=== PATIENT | female | born 1970 | race Caucasian/White ===

== ENCOUNTER → 2024-09-04 06:38 | Outpatient (REF) | payer OTHER, SELFPAY | LOC: HWWDC 06:38 | PROVIDERS: ATTENDING PHYSICIAN Family Medicine | DX: Z12.31 Encounter for screening mammogram for malignant neoplasm of breast (principal) | CPT/HCPCS: 77063; 77067 ==

== ENCOUNTER 2025-04-21 06:34 | Day surgery (SDC) | payer OTHER, SELFPAY ==
[2025-04-21 07:19] LABS: Glucose - Point of Care 117 mg/dl (70-99)
== END 2025-04-21 09:27 | disposition home or self-care (01) ==
LOC: GI 06:34
PROVIDERS: ATTENDING PHYSICIAN Internal Medicine Gastroenterology
DX: Z12.11 Encounter for screening for malignant neoplasm of colon (principal); K63.5 Polyp of colon
CPT/HCPCS: 45385; 82962; 88305

== ENCOUNTER → 2025-05-06 06:50 | Outpatient (REF) | payer OTHER, SELFPAY | LOC: RSP 06:50 | PROVIDERS: ATTENDING PHYSICIAN Family Medicine | DX: Z94.84 Stem cells transplant status (principal) | CPT/HCPCS: 88738; 94060; 94727; 94729 ==